=== PATIENT | male | born 2000 | race Caucasian/White ===

== ENCOUNTER → 2020-11-24 14:16 | Outpatient (CLI) | payer BC, SELFPAY ==
--- NOTE | ~2020-11-24 | XR_ITS ---
XR abdomen/kub 1V DATE: 11/24/2020 14:40 INDICATION: Hematuria TECHNIQUE: AP projection, 2 views COMPARISON: 11/24/2015 KUB FINDINGS: There is a prominent amount of fecal material in the colon but no evidence of bowel obstruc tion. The psoas shadows are intact. No visceromegaly is evident. No significant abnormal calcification. IMPRESSION: No significant abnormality. No evidence of urinary tract calcified calculus Reviewed, dictated and finalized at [facility]. Reviewed, dictated and finalized at location A.
== END ==
PROVIDERS: PCP Nurse Practitioner Family; Visit Provider Nurse Practitioner Family
DX: R31.9 Hematuria, unspecified (principal)
CPT/HCPCS: 74018

== ENCOUNTER 2020-12-03 14:03 | Emergency (ER) | payer BC, SELFPAY ==
[2020-12-03] VITALS (7 sets, daily range): BP systolic 128–166; BP diastolic 77–101; PULSE 75–102; RESP 15–23; TEMP 36.8; O2SAT 100
--- NOTE | ~2020-12-03 | XR_ITS ---
EXAMINATION: XR chest 1V DATE: 12/03/2020 14:44 INDICATION: Dizziness TECHNIQUE: frontal view of the chest was obtained. COMPARISON: Chest radiograph dated 06/25/2011 FINDINGS: Small calcified nodule at the lateral left lower lung zone consistent with old granulomatous disease. No other airspace opacities, pulmonary edema, pleural effusion or pneumothorax. The cardiomediastina l silhouette is normal. Mild upper thoracic levocurvature. IMPRESSION: 1. No acute cardiopulmonary disease. Reviewed, dictated and finalized at location A.
--- NOTE | ~2020-12-03 | CT_ITS ---
EXAMINATION: CT brain wo con DATE: 12/03/2020 14:41 INDICATION: Dizziness. TECHNIQUE: Computed tomography (CT) of the head was performed without intravenous contrast. The mA wa s adjusted according to patient size. Iterative reconstruction technique was employed. The dose-lengt h product was 605.33 mGy-cm. COMPARISON: Head CT 12/11/2005 FINDINGS: There is no intracranial hemorrhage, acute infarction, or abnormal intracranial mass lesion . The ventricles are normal in size. The paranasal sinuses are clear. The orbits are normal. There is a small left mastoid effusion. IMPRESSION: 1. Normal brain. Reviewed, dictated and finalized at location B. IMPRESSION: 1. Normal brain.
--- NOTE | 2020-12-03 14:25 | ED.GENADULT ---
HPI - General Adult General Chief complaint: Dizziness Stated complaint: dizziness x24 hrs, htn Time Seen by Provider: 12/03/20 14:06 Source: RN notes reviewed History of Present Illness HPI narrative: Patient presents to emergency department from home for dizziness. Patient states symptoms began approximately 24 hours ago. He states the dizziness is improved with laying down and worse with getting up and moving around. States that the dizziness is a feeling of being off he denies any fevers or chills vision changes chest pain shortness of breath abdominal pain nausea vomiting numbness or tingling in extremities or any other symptoms Related Data Home Medications Medication Instructions Recorded Confirmed lisdexamfetamine 50 mg capsule 50 mg PO DAILY 04/14/20 04/14/20 Allergies Allergy/AdvReac Type Severity Reaction Status Date / Time No Known Allergies Allergy Verified 11/20/20 14:24 Review of Systems Review of Systems: Narrative: Gen.: Denies fevers or chills Eyes: Denies eye pain or visual change ENT: Denies congestion Respiratory: Denies shortness of breath or cough CV: Denies chest pain or palpitations GI: Denies abdominal pain nausea, emesis or diarrhea Musculoskeletal: Denies back pain or muscle pain Neuro: See HPI Skin: Denies rash Except as documented, all other systems reviewed and negative [facility] Past Medical History Medical History (Updated 12/03/20 @ 16:04 by Delmar Vázquez DO) ADHD BMI 27.0-27.9,adult Family History Family History Father No problems noted. Mother Pancreatitis Sibling No problems noted. Social History Social History Smoking status: Never smoker Tobacco type: cigars Second hand tobacco smoke exposure: No Alcohol intake: current Substance use: never Substance use type: does not use Gender identity (if verbalized by the patient): Male Exam Narrative: Exam Narrative: APPEARANCE: No acute distress, nontoxic, resting in bed HEENT: Normocephalic, atraumatic, OMM, TMs clear bilaterally EYES: PERRL, EOMI NECK: Supple, nontender, full range of motion without pain, no meningismus RESPIRATORY: No respiratory distress, clear to auscultation bilaterally with no rhonchi wheezing or rales CARDIOVASCULAR: RRR s murmur ABDOMINAL: Soft, nontender, nondistended MUSCULOSKELETAL: Moves all extremities. No clubbing, cyanosis or edema. NEURO: A and O ?3, following commands, speech normal, cranial nerves II through XII grossly intact,muscle strength 5 out of 5 bilateral upper and lower extremities SKIN:: Warm, dry. Normal Color PSYCHIATRIC: Normal affect/mood Course Course Emergency Course: Patient states dizziness is resolved at this time Discussed with patient results of workup and diagnosis. Discussed need for follow-up with primary care, proper use of medication, and reasons to return to the emergency department. Patient understands and agrees to current treatment plan Vital Signs Vital signs: Vital Signs Pulse Rate 102 H 12/03/20 14:09 Respiratory Rate 21 H 12/03/20 14:09 Blood Pressure 166/101 H 12/03/20 14:09 Pulse Oximetry 100 12/03/20 14:09 Temperature 98.2 F 12/03/20 14:16 Pulse Rate 90 12/03/20 15:31 Respiratory Rate 21 H 12/03/20 15:31 Blood Pressure 128/77 12/03/20 15:31 Pulse Oximetry 100 12/03/20 15:31 Medical Decision Making MDM Narrative Medical decision making narrative: Patient's vertigo is felt to be likely peripheral in origin. There is no diplopia, dysarthria or dysphagia. Patient's gait is stable and there are no cerebral deficits to exam. Risk factor for central causes of vertigo reviewed. Patient felt likely reasonable for continued outpatient management and risks are felt to outweigh benefits for further imaging studies at this time Vital Signs Vital Signs: Vital Signs Pulse Rate 102 H 0
[2020-12-03 14:45] LABS: Add Urine Microscopic? YES; Appearance Urine Clear (Clear); Bilirubin Urine Negative (Negative); Blood Urine Negative (Negative); Color Urine Yellow (Yellow); Glucose Urine UA Negative (Negative); Ketones Urine Negative (Negative); Leukocyte Esterase Ur Negative LEU/UL (Negative); Mucus Urine Rare /lpf; Nitrate Urine Negative (Negative); Protein Urine 1+ mg/dL (Negative); RBC Urine 0-2 /hpf (0-2); Specific Grav Ur 1.017 (1.001-1.035); Squamous Epithelial Cell Urine Rare /hpf (Few); Urobilinogen Urine Negative mg/dL (<2.0); WBC Urine 0-3 /hpf
[2020-12-03] MEDS: SODIUM CHLORIDE 0.9% IV 1,000 ML 999 ML IV CONT (14:59)
[2020-12-03] MEDS: MECLIZINE HCL 25 MG TABLET PO (14:59)
[2020-12-03 15:04] LABS: Basophils Absolute Auto 0.1 K/mm3 (0.0-0.1); Basophils Percent Auto 1.3 % (0.2-1.2); Eosinophils Absolute Auto 0.1 K/mm3 (0-0.3); Eosinophils Percent Auto 1.8 % (0-4.4); Hemoglobin 17.2 g/dL (14.0-18.0); Immature Granulocyte Absolute 0.02 K/mm3 (0.00-0.031); Immature Granulocyte Percent A 0.3 % (0-0.5); Lymphocytes Percent Auto 26.4 % (18.3-44.2); Mean Corpuscular HGB Conc 33.1 g/dl (32-36); Mean Corpuscular Hemoglobin 29.3 pg (26-34); Mean Corpuscular Volume 88.4 fl (80-100); Mean Platelet Volume 9.5 fl (7.4-10.4); Monocytes Absolute Auto 0.8 K/mm3 (0.1-0.6); Monocytes Percent Auto 10.3 % (2.6-8.5); Neutrophils Absolute Auto 4.8 K/mm3 (1.3-6.7); Neutrophils Percent Auto 59.9 % (45.5-73.1); Platelet Count Result 300 k/mm3 (150-375); Red Blood Count 5.88 M/mm3 (4.6-6.20); Red Cell Distribution Width 11.7 % (11.5-14.5)
[2020-12-03 15:07] LABS: Alanine Aminotransferase 27 U/L (4-50); Alkaline Phosphatase 81 U/L (38-126); Anion Gap 3 mmol/L (8-16); Aspartate Amino Transferase 35 U/L (17-59); Bilirubin,Total 0.2 mg/dL (0.2-1.3); Blood Urea Nitrogen 11 mg/dL (9-20); Calcium 9.2 mg/dL (8.4-10.2); Carbon Dioxide 35 mmol/L (22-30); Chloride 102 mmol/L (98-107); Estimated CRCL calculation 117 ml/min; Estimated Glomerular Filt Rate > 60; Glucose 94 mg/dL (75-110); Potassium 3.9 mmol/L (3.4-5.0); Sodium 140 mmol/L (137-145)
--- NOTE | 2020-12-03 17:12 | ECG_ITS ---
Measurements Intervals [place] Rate: 92 P: 51 [place]: 176 QRS: 60 QRSD: 92 T: 38 QT: 348 QTc: 431 Interpretive Statements SINUS RHYTHM INCOMPLETE RIGHT BUNDLE BRANCH BLOCK DELAYED PRECORDIAL R/S TRANSITION BORDERLINE ECG Electronically Signed On 12-04-2020 7:06:15 CDT by Michele Anaya D.O.
== END 2020-12-03 16:15 | disposition home or self-care (01) ==
PROVIDERS: Emergency Provider Emergency Medicine; PCP Nurse Practitioner Family
DX: R42 Dizziness and giddiness (principal); F90.9 Attention-deficit hyperactivity disorder, unspecified type; I45.10 Unspecified right bundle-branch block
CPT/HCPCS: 36415; 70450; 71045; 80053; 81001; 85025; 93005; 96360; 99284; A9270; J7030

== ENCOUNTER 2020-12-15 23:03 | Emergency (ER) | payer BC, SELFPAY ==
--- NOTE | ~2020-12-15 | XR_ITS ---
EXAMINATION: XR chest 1V portable INDICATION: Dizziness TECHNIQUE: Portable AP chest at 0105 hours COMPARISON: 12/03/2020 FINDINGS: The lungs are free of acute opacities. There is no pleural effusion or pneumothorax. A calc ified nodule in the left lower lung zone is consistent with old granulomatous disease. The cardiomedi astinal silhouette is normal. The visualized osseous structures are unremarkable. IMPRESSION: 1. No acute cardiopulmonary abnormality. Reviewed, dictated and finalized at location A.
[2020-12-15 23:04] VITALS: BP 131/88; PULSE 76; RESP 16; TEMP 36.3; O2SAT 96
[2020-12-15 23:57] VITALS: BP 146/98; PULSE 68; RESP 20; O2SAT 99
[2020-12-15 23:59] VITALS: BP 140/98; PULSE 77; RESP 15; O2SAT 99
[2020-12-16] VITALS (16 sets, daily range): BP systolic 129–147; BP diastolic 86–99; PULSE 66–81; RESP 14–23; O2SAT 97–98
--- NOTE | 2020-12-16 00:50 | ED.DIZZY ---
HPI - Dizziness General Chief Complaint: Dizziness Stated Complaint: dizzy/high blood pressure Time Seen by Provider: 12/16/20 00:02 Source: patient and family Mode of arrival: ambulatory Limitations: no limitations History of Present Illness HPI Narrative: Patient is 20 years old white female presented to the ED with his mom because of sudden onset of dizziness while laying down watching TV. Patient denies any aggravating or relieving factors, patient denies any nausea, vomiting, fever, chills, headache, chest pain or shortness of breath. Patient reported to having similar symptoms 1 to 2 weeks ago and came to our emergency room, was diagnosed of vertigo, got better and meclizine. Which he ran out of it. Currently patient is asymptomatic. History of stress. Patient blood pressure was elevated at the time of dizziness, 181/91, improved on arrival to the emergency room down to 131/88. Currently patient is asymptomatic Related Data Allergies Allergy/AdvReac Type Severity Reaction Status Date / Time No Known Allergies Allergy Verified 12/11/20 13:46 Review of Systems Review of Systems: Narrative: CONSTITUTIONAL: Denies fever, chills, or sweats. EYES: Denies visual changes, redness, or discharge. ENT: Denies rhinorrhea, congestion, sore throat, or otalgia. CARDIOVASCULAR: Denies chest pain, palpitations, or edema. RESPIRATORY: Denies cough or dyspnea. GASTROINTESTINAL: Denies abdominal pain, nausea, vomiting, or diarrhea. GENITOURINARY: Denies dysuria or hematuria. SKIN: Denies rash or itching. MUSCULOSKELETAL: Denies back pain, joint pain, or myalgia. NEUROLOGIC: Denies headache, numbness, or weakness. PSYCHIATRIC: Denies anxiety or depression. [facility] Past Medical History Medical History ADHD BMI 27.0-27.9,adult Family History Family History Father No problems noted. Mother Pancreatitis Sibling No problems noted. Social History Social History Tobacco type: cigars Second hand tobacco smoke exposure: No Alcohol intake: current Substance use: never Substance use type: does not use Gender identity (if verbalized by the patient): Male Exam Narrative: Exam Narrative: General appearance: Well-developed, well-nourished Skin: Normal color Head: Normocephalic, nontraumatic Eyes: Clear conjunctiva ENT: Oropharynx normal, ears normal, nose normal Neck: Supple, nontender Chest and respiratory: Airway patent, no respiratory distress, no accessory muscle use Heart: Regular rate/rhythm Abdomen: Soft, nontender, no organomegaly, quiet bowel sounds Vascular: Normal peripheral pulses, normal capillary refill. Musculoskeletal: Normal range of motion, nontender back Neurologic: Alert and oriented ?3, [employer] is normal as tested, no gross motor deficit Course Course Emergency Course: Resolved Vital Signs Vital signs: Vital Signs Temperature 36.3 C L 12/15/20 23:04 Pulse Rate 76 12/15/20 23:04 Respiratory Rate 16 12/15/20 23:04 Blood Pressure 131/88 12/15/20 23:04 Pulse Oximetry 96 12/15/20 23:04 Temperature 36.3 C L 12/15/20 23:04 Pulse Rate 75 12/16/20 02:56 Respiratory Rate 16 12/16/20 02:56 Blood Pressure 132/92 H 12/16/20 02:56 Pulse Oximetry 98 12/16/20 02:56 MDM - Dizziness MDM Narrative Medical decision making narrative: Patient presents with dizziness. History of anxiety and depression. Labs, UA, urine drug screen and chest x-ray ordered. Patient had negative CT scan of the head last visit, declined to repeated today. Jose Luis
--- NOTE | 2020-12-16 00:56 | ECG_ITS ---
Measurements Intervals [place] Rate: 76 P: 50 [place]: 184 QRS: 64 QRSD: 87 T: 47 QT: 378 QTc: 427 Interpretive Statements SINUS RHYTHM NORMAL ECG Electronically Signed On 12-16-2020 7:06:26 CDT by Michele Anaya D.O.
[2020-12-16 01:31] LABS: Alanine Aminotransferase 28 U/L (4-50); Albumin Level 4.4 g/dL (3.5-5.1); Alkaline Phosphatase 68 U/L (38-126); Anion Gap 4 mmol/L (8-16); Aspartate Amino Transferase 35 U/L (17-59); Bilirubin,Total 0.4 mg/dL (0.2-1.3); Blood Urea Nitrogen 12 mg/dL (9-20); Calcium 9.6 mg/dL (8.4-10.2); Carbon Dioxide 34 mmol/L (22-30); Chloride 100 mmol/L (98-107); Estimated CRCL calculation 129 ml/min; Estimated Glomerular Filt Rate > 60; Glucose 99 mg/dL (75-110); Potassium 3.8 mmol/L (3.4-5.0); Sodium 138 mmol/L (137-145)
[2020-12-16 01:38] LABS: Basophils Absolute Auto 0.1 K/mm3 (0.0-0.1); Basophils Percent Auto 1.2 % (0.2-1.2); Eosinophils Absolute Auto 0.2 K/mm3 (0-0.3); Eosinophils Percent Auto 1.9 % (0-4.4); Hematocrit 48.3 % (42.0-52.0); Immature Granulocyte Absolute 0.03 K/mm3 (0.00-0.031); Immature Granulocyte Percent A 0.3 % (0-0.5); Lymphocytes Absolute Auto 2.37 K/mm3 (0.9-3.2); Lymphocytes Percent Auto 27.5 % (18.3-44.2); Mean Corpuscular HGB Conc 33.1 g/dl (32-36); Mean Corpuscular Hemoglobin 29.2 pg (26-34); Mean Corpuscular Volume 88.1 fl (80-100); Mean Platelet Volume 9.9 fl (7.4-10.4); Monocytes Absolute Auto 0.8 K/mm3 (0.1-0.6); Monocytes Percent Auto 9.3 % (2.6-8.5); Neutrophils Absolute Auto 5.2 K/mm3 (1.3-6.7); Neutrophils Percent Auto 59.8 % (45.5-73.1); Platelet Count Result 301 k/mm3 (150-375); Red Blood Count 5.48 M/mm3 (4.6-6.20); Red Cell Distribution Width 11.6 % (11.5-14.5); White Blood Count 8.6 K/mm3 (4.5-10.0)
[2020-12-16 02:15] LABS: Add Urine Microscopic? NO; Appearance Urine Clear (Clear); Bilirubin Urine Negative (Negative); Blood Urine Negative (Negative); Color Urine Straw (Yellow); Glucose Urine UA Negative (Negative); Ketones Urine Negative (Negative); Leukocyte Esterase Ur Negative LEU/UL (Negative); Nitrate Urine Negative (Negative); Protein Urine Negative (Negative); RBC Urine 0-2 /hpf (0-2); Squamous Epithelial Cell Urine Rare /hpf (Few); Urobilinogen Urine Negative mg/dL (<2.0); WBC Urine 0-3 /hpf
[2020-12-16 02:28] LABS: Amphetamine Screen Urine Positive (Negative); Barbiturate Screen Urine Negative (Negative); Benzodiazepines Screen Urine Negative (Negative); Cannabinoid Screen Urine Negative (Negative); Cocaine Screen Urine Negative (Negative); Methadone Screen Urine Negative (Negative); Opiate Screen Urine Negative (Negative); Phencyclidine Screen Urine Negative (Negative)
== END 2020-12-16 02:56 | disposition home or self-care (01) ==
PROVIDERS: Emergency Provider Emergency Medicine; PCP Family Medicine
DX: R42 Dizziness and giddiness (principal); F90.9 Attention-deficit hyperactivity disorder, unspecified type; F17.290 Nicotine dependence, other tobacco product, uncomplicated
CPT/HCPCS: 36415; 71045; 80053; 80307; 81003; 85025; 93005; 99283

== ENCOUNTER → 2022-05-11 16:03 | Outpatient (CLI) | payer BC, SELFPAY ==
--- NOTE | ~2022-05-11 | XR_ITS ---
XR ankle LT min 3V 05/11/2022 16:15 INDICATION: Left ankle pain PROCEDURE: 4 views left ankle COMPARISON: 02/28/2015 FINDINGS: Fracture, dislocation or subluxation is not identified. Ankle mortise intact. The soft tiss ues appear within normal limits. No foreign bodies are identified. IMPRESSION: 1: NO ACUTE BONE OR JOINT ABNORMALITY IDENTIFIED. Reviewed, dictated and finalized at location B.
== END ==
PROVIDERS: PCP Family Medicine; Visit Provider Nurse Practitioner Family
DX: S99.912A Unspecified injury of left ankle, initial encounter (principal); X58.XXXA Exposure to other specified factors, initial encounter
CPT/HCPCS: 73610

== ENCOUNTER 2022-08-11 09:33 | Emergency (ER) | payer BC, SELFPAY ==
[2022-08-11 09:47] VITALS: BP 128/87; PULSE 88; RESP 20; TEMP 36.1; O2SAT 99
--- NOTE | 2022-08-11 09:47 | ED.URI ---
HPI - URI/Sore Throat General Chief Complaint: Upper Respiratory Infection Stated Complaint: cold/flu Time Seen by Provider: 08/11/22 09:51 Source: patient and RN notes reviewed Mode of arrival: ambulatory Limitations: no limitations History of Present Illness HPI Narrative: 22 y/o male presented for c/o cough for over one week. Endorses at the onset he had 'flu like symptoms' which have improved. The cough has persisted, affecting his ability to do work. Endorses sob with exertion. He has been using a rescue inhaler as needed. Denies cp, palpitations, wheezing, n/v/d/f/c. Taking mucinex for symptoms. MD elicited complaint: cough Related Data Home Medications Medication Instructions Recorded Confirmed lamotrigine 25 mg tablet 25 mg PO DAILY 05/06/22 05/18/22 lisdexamfetamine 50 mg capsule 50 mg PO DAILY 05/06/22 05/18/22 (Vyvanse) Allergies Allergy/AdvReac Type Severity Reaction Status Date / Time No Known Allergies Allergy Verified 08/11/22 10:08 Review of Systems Review of Systems: per [facility] Past Medical History Medical History ADHD BMI 26.0-26.9,adult BMI 27.0-27.9,adult BMI 30.0-30.9,adult Family History Family History Father No problems noted. Mother Pancreatitis Sibling No problems noted. Social History Social History Smoking status: Never smoker Tobacco type: cigars Second hand tobacco smoke exposure: No Alcohol intake: current Substance use: never Substance use type: does not use Additional occupation/education comments: bo Gender identity (if verbalized by the patient): Male Spiritual care concerns: No Agree to blood products: Yes Exam Narrative: GENERAL: well-appearing, nontoxic EYES: PERRLA, conjunctivae clear ENT: Mucous membranes moist. TMs pearly [place] with dull light reflex bilaterally; no tragal tenderness. CHEST: Clear to auscultation, breath sounds equal. No wheezing, rhonchi, rales, or stridor. No respiratory distress, speaks in full sentences. HEART: Regular rate and rhythm. No murmur heard. SKIN: Warm, dry, no rash. NEURO: Alert and oriented x3. PSYCH: Normal mood and affect Course Course Emergency Course: Patient is aware of diagnosis, understands and agrees to treatment plan. Anticipatory guidance given. Patient agrees to follow-up as directed and is aware of reasons to seek care at the emergency department. Portions of this record may have been created with voice recognition software Level of Care: Express Care Visit Vital Signs Vital signs: reviewed MDM - URI/Sore Throat MDM Narrative Medical decision making narrative: Advised supportive measures and signs/symptoms to go to the ER. Pt is appropriate for outpt treatment and f/u. Differential Diagnosis Differential diagnosis: Likely upper respiratory infection, sinusitis, viral infection and bronchitis Discharge Plan Discharge Clinical Impression: Viral infection Patient Disposition: Home, Self-Care Condition: Stable Instructions: Acute Bronchitis (ED) Additional Instructions: Take medication as directed Recommend Flonase spray and Zyrtec (or Claritin/Magalis) over the counter Cough syrup may cause drowsiness; avoid driving or take it at night time. Tylenol 1000mg every 8 hours as needed for pain Symptomatic treatment includes: rest, fluids, and increase humidity of the air at home. Follow up with your primary care provider as needed in 1 week Go to the ER for worsening symptoms or concerns Prescriptions: New benzonatate 200 mg capsule 200 mg PO TID PRN (Reason: cough) Qty: 20 0RF prednisone 20 mg tablet 40 mg PO DAILY 5 Days Qty: 10 0RF No Action Vyvanse 50 mg capsule 50 mg PO DAILY lamotrigine 25 mg tablet 25 mg PO DAILY albuterol
== END 2022-08-11 10:10 | disposition home or self-care (01) ==
PROVIDERS: Emergency Provider Nurse Practitioner Family; PCP Nurse Practitioner Family
DX: B34.9 Viral infection, unspecified (principal)
CPT/HCPCS: 99213; G0463

== ENCOUNTER 2022-10-11 10:53 | Emergency (ER) | payer BC, SELFPAY ==
--- NOTE | ~2022-10-11 | XR_ITS ---
EXAMINATION: XR thoracic spine 3V DATE: 10/11/2022 12:03 INDICATION: Back pain. TECHNIQUE: 3 views of thoracic spine were obtained. COMPARISON: None. FINDINGS: There is 13 degrees levoscoliosis of upper thoracic spine. There is 12 degrees dextroscolio sis of lower thoracic spine. Vertebral body heights and intervertebral disc heights are normal. IMPRESSION: 1. Scoliosis. Reviewed, dictated and finalized at location A. [facility] [employer] [employer] IMPRESSION: 1. Scoliosis.
--- NOTE | 2022-10-11 10:58 | ED.BACK ---
HPI - Back Pain/Injury General Chief Complaint: Back Pain/Injury Stated Complaint: lower back pain/ lt leg pain Time Seen by Provider: 10/11/22 11:15 Source: patient and RN notes reviewed Mode of arrival: ambulatory Limitations: no limitations History of Present Illness HPI Narrative: 22-year-old male presents with concern for mid back pain. Reports today at work he was on a ladder, fell 5 ft and landed on his back. He reports pain to the left of the spine that radiates down the leg. He reports he feels like his left leg is slightly weaker than the right. He denies perianal anesthesia. He denies any bruising, open skin. MD elicited complaint: back pain Related Data Home Medications Medication Instructions Recorded Confirmed lamotrigine 25 mg tablet 50 mg PO DAILY 05/06/22 10/11/22 lisdexamfetamine 50 mg capsule 50 mg PO DAILY 10/11/22 10/11/22 (Vyvanse) Allergies Allergy/AdvReac Type Severity Reaction Status Date / Time No Known Allergies Allergy Verified 10/11/22 11:05 Review of Systems Review of Systems: CONSTITUTIONAL: Denies malaise, chills, sweats, or fever. CARDIOVASCULAR: Denies chest pain, palpitations, or edema. RESPIRATORY: Denies cough or dyspnea. GASTROINTESTINAL: Denies abdominal pain, nausea, vomiting, diarrhea, loss of bowel function GENITOURINARY: Denies dysuria, hematuria, frequency, loss of bladder function. SKIN: Denies rash or itching. MUSCULOSKELETAL: Reports midback pain, slight weakness in the left lower extremity with pain radiating down left leg NEUROLOGIC: Denies numbness or headache. All systems reviewed & are unremarkable except as noted in HPI and below PMFSH Past Medical History Medical History ADHD BMI 26.0-26.9,adult BMI 27.0-27.9,adult BMI 30.0-30.9,adult Family History Family History Father No problems noted. Mother Pancreatitis Sibling No problems noted. Social History Social History Smoking status: Never smoker Tobacco type: cigars Second hand tobacco smoke exposure: No Alcohol intake: current Substance use: never Substance use type: does not use Living arrangements: alone Occupation/Education: occupation Additional occupation/education comments: bo Gender identity (if verbalized by the patient): Male Spiritual care concerns: No Agree to blood products: Yes Comments At time of signature, agree with nursing past medical, surgical, social and family history. There is no relevant family history pertinent to the presenting complaint Exam Narrative: GENERAL: Well-appearing, well-nourished, and in no acute distress. HEAD: Normocephalic, atraumatic. EYES: PERRLA and EOMI. NECK: Supple. No lymphadenopathy. CHEST: Clear to auscultation. No respiratory distress. HEART: Regular rate and rhythm. Distal pulses palpable and equal, cap refill <3 seconds ABDOMEN: Soft, nontender, nondistended, normal active bowel sounds, no palpable or pulsatile masses. No CVA tenderness MUSCULOSKELETAL: Normal range of motion and strength in all extremities; 5/5 strength with hip flexion and extension, dorsiflexion and extension, knee flexion and extension, plantar flexion and extension of the right lower extremity, 4/5 of the left lower extremity.. Normal sensation in dermatomal distributions with sensitivity to light touch and pain. No midline back tenderness to palpation. Mild left thoracic paraspinal tenderness. Transfers from lying to sitting to standing. SKIN: Warm, dry, no rash. No ecchymosis, erythema, open wounds to back. NEURO: No focal deficits. Alert and oriented x3. Reflexes intact. Normal gait. PSYCH: Normal mood and affect Course Course Emergency Course: Discussed exam findings, imaging results with the patient. Advised that the x-ray might not be definitive di
[2022-10-11 11:00] VITALS: BP 144/88; PULSE 74; RESP 16; TEMP 36.4; O2SAT 100
== END 2022-10-11 12:43 | disposition home or self-care (01) ==
PROVIDERS: Emergency Provider Nurse Practitioner; PCP Nurse Practitioner Family
DX: S39.92XA Unspecified injury of lower back, initial encounter (principal); W11.XXXA Fall on and from ladder, initial encounter
CPT/HCPCS: 72072; 99213; G0463

== ENCOUNTER 2023-05-05 19:16 | Emergency (ER) | payer BC, SELFPAY ==
[2023-05-05 19:30] VITALS: BP 121/74; PULSE 84; RESP 16; TEMP 37.2; O2SAT 98
--- NOTE | 2023-05-05 19:51 | ED.DIZZY ---
HPI - Dizziness General Chief Complaint: Dizziness Stated Complaint: Dizzy spells;Nausea;Headache Time Seen by Provider: 05/05/23 19:51 Source: patient, RN notes reviewed and old records reviewed Mode of arrival: ambulatory Limitations: no limitations History of Present Illness HPI Narrative: 23-year-old male presents to the [facility] with concerns of dizzy spells since Tuesday. Patient reports change in vision and seeing black spots at times. 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 Did not change it, has been gradually getting worse over the last 3 days. Patient also reports that dull frontal headache. Patient had a similar episode several years ago and states they changed his medications and did fine. Onset (ago): day(s) (3) Related Data Allergies Allergy/AdvReac Type Severity Reaction Status Date / Time No Known Allergies Allergy Verified 02/01/23 15:09 Review of Systems Review of Systems: All systems reviewed & are unremarkable except as noted in HPI and below Constitutional: Constitutional: Reports no additional constitutional complaints Eyes: Eyes: Reports no additional eye complaints ENT: Reports system reviewed and no additional complaints, except as documented Cardiovascular: Cardiovascular: Reports no additional cardiovascular complaints, Denies chest pain and Denies dyspnea Respiratory: Respiratory: Reports no additional respiratory complaints, Denies chest congestion, Denies cough and Denies dyspnea Gastrointestinal: Gastrointestinal: Reports no additional gastrointestinal complaints, Denies abdominal pain, Denies nausea and Denies vomiting Musculoskeletal: Musculoskeletal: Reports no additional musculoskeletal complaints Integumentary/Breasts: Skin/Breast: Reports system reviewed and no additional complaints, except as docu Neurologic: Reports as per HPI, Reports dizziness, Reports headache(s), Denies focal weakness and Reports other (Change of vision and seeing black spots) Psychiatric: Psychiatric: Reports no additional psychiatric complaints Allergic/Immunologic: Allergic/Immunologic: Reports no additional allergic/immunologic complaints PMFSH Past Medical History Medical History ADHD BMI 26.0-26.9,adult BMI 27.0-27.9,adult BMI 30.0-30.9,adult Gastrointestinal disorder Overweight with body mass index (BMI) of 28 to 28.9 in adult Family History Family History Father Colon cancer Mother Pancreatitis Sibling No problems noted. 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 There is no relevant family history pertinent to the patient complaint. Exam Const: General: cooperative, healthy appearing, comfortable, no acute distress, well developed, alert and well nourished Nutritional Appearance: well nourished Orientation/consciousness: patient oriented x3 Limitations: no limitations HENMT: Head: normal to inspection Ears: hearing grossly normal bilaterally, external ears no
== END 2023-05-05 20:05 | disposition short-term general hospital (02) ==
PROVIDERS: Emergency Provider Nurse Practitioner; PCP Nurse Practitioner Family
DX: R42 Dizziness and giddiness (principal); R51.9 Headache, unspecified
CPT/HCPCS: 99213; G0463

== ENCOUNTER 2023-05-05 20:19 | Emergency (ER) | payer BC, SELFPAY ==
[2023-05-05] VITALS (8 sets, daily range): BP systolic 123–135; BP diastolic 78–87; PULSE 62–89; RESP 15–20; TEMP 36.7–36.8; O2SAT 97–100
--- NOTE | 2023-05-05 23:24 | ED.DIZZY ---
HPI - Dizziness General Chief Complaint: Dizziness Stated Complaint: dizziness, headache Time Seen by Provider: 05/05/23 21:58 Source: patient and family (mother) Limitations: no limitations History of Present Illness HPI Narrative: Patient is a 23-year-old male presents to the emergency department accompanied by his mother for dizziness. Patient notes he has history of vertigo a couple years ago in which he came here for evaluation and was unsure what the formal diagnosis was was told that he had vertigo and he was given a medication that seemed to slightly help and ultimately the vertigo went away with approximately 1-2 weeks and had not returned until recently. Patient states the CP and having vertigo starting around approximately Tuesday and notes that the vertigo only happens with rapid head movements addition to movement such as getting up in sitting down and the sensation will last for seconds to a couple of minutes in which everything is spinning and then ago way. Patient denies vertigo at rest. Patient denies vertigo persisting. Patient denies anything getting abruptly worse prompting evaluation today. Patient denies ear pain, headache, recent injuries, hearing changes, tinnitus, sore throat, nasal congestion, chest pain, shortness of breath, dysuria, numbness, weakness, vision changes, fever. Patient denies ever seeing your nose and throat doctor in the past. Patient notes that the vertigo only happens with rapid movements of his head. Patient denies having any vertigo in the ER today. Denies recent illness. Related Data Allergies Allergy/AdvReac Type Severity Reaction Status Date / Time No Known Allergies Allergy Verified 02/01/23 15:09 Review of Systems Review of Systems: A 10 system review of systems was completed on the patient and is negative except for what is stated in the HPI. Nursing and ancillary documentation was reviewed. [facility] Past Medical History Medical History ADHD BMI 26.0-26.9,adult BMI 27.0-27.9,adult BMI 30.0-30.9,adult Gastrointestinal disorder Overweight with body mass index (BMI) of 28 to 28.9 in adult Family History Family History Father Colon cancer Mother Pancreatitis Sibling No problems noted. Social History Social History Smoking status: Never smoker Tobacco type: cigars Second hand tobacco smoke exposure: No Alcohol intake: current Substance use: never Substance use type: does not use Lack of Transportation: No Lack of Food: Never True Current Housing: I Have Housing Concerned About Future Housing: No Difficulty Paying Gas/Electric Bills: No Difficulty Paying for Meds: No Currently Unemployed: No Education: Bachelor's Degree Difficulty w/ Childcare or Family Care: No Living arrangements: alone Occupation/Education: occupation Additional occupation/education comments: [employer] Gender identity (if verbalized by the patient): Male Spiritual care concerns: No Agree to blood products: Yes Comments At time of signature, I have reviewed and agree with nursing past medical, surgical, social and family history unless otherwise noted. Please see the nursing chart for further information. There is no relevant family history pertinent to the presenting complaint. Exam Narrative: CONST: No acute distress. Well nourished. HENMT: Head is normocephalic and atraumatic. Moist mucous membranes. No posterior oropharynx erythema. EYES: No conjunctival icterus, injection, or pallor. PERRL. No nystagmus. NECK: No meningeal signs. No JVD. No carotid bruits on auscultation bilaterally. No palpable cervical lymphadenopathy. RESP: Able to speak in full sentences. Normal respiratory effort. CTAB. CARDIO: Regular rate. Regular rhythm. 2+ DP and radial pulses bilaterally. GI: Nondisten
[2023-05-05] MEDS: MECLIZINE HCL 25 MG TABLET PO (23:44)
== END 2023-05-05 23:47 | disposition home or self-care (01) ==
PROVIDERS: Emergency Provider Student in an Organized Health Care Education/Training Program; PCP Nurse Practitioner Family
DX: H81.10 Benign paroxysmal vertigo, unspecified ear (principal); F90.9 Attention-deficit hyperactivity disorder, unspecified type; E66.3 Overweight; Z68.25 Body mass index [BMI] 25.0-25.9, adult; K92.9 Disease of digestive system, unspecified
CPT/HCPCS: 99283; A9270

== ENCOUNTER 2023-06-20 09:45 | Emergency (ER) | payer BC, SELFPAY ==
[2023-06-20 10:09] VITALS: BP 129/84; PULSE 89; RESP 16; TEMP 36.6; O2SAT 99
[2023-06-20 10:13] VITALS: BP 129/84; PULSE 89; RESP 16; TEMP 36.6; O2SAT 99
--- NOTE | 2023-06-20 11:33 | ED.URI ---
HPI - URI/Sore Throat General Chief Complaint: Upper Respiratory Infection Stated Complaint: Cough Time Seen by Provider: 06/20/23 11:34 Source: patient, RN notes reviewed and old records reviewed Mode of arrival: ambulatory Limitations: no limitations History of Present Illness HPI Narrative: 23-year-old male presents to the [facility] with complaints of a cough that started about 10 days ago. States that is he has had sinus congestion, chest congestion. States all of his symptoms are worse at night than during the day. Denies fevers, chest pain, abdominal pain. No sick contacts. Onset (ago): day(s) (10) Related Data Allergies Allergy/AdvReac Type Severity Reaction Status Date / Time No Known Allergies Allergy Verified 06/20/23 10:12 Review of Systems Review of Systems: All systems reviewed & are unremarkable except as noted in HPI and below Constitutional: Constitutional: Reports no additional constitutional complaints Eyes: Eyes: Reports no additional eye complaints ENT: Reports as per HPI Cardiovascular: Cardiovascular: Reports no additional cardiovascular complaints, Denies chest pain and Denies dyspnea Respiratory: Respiratory: Reports as per HPI, Reports chest congestion, Reports cough and Denies dyspnea Gastrointestinal: Gastrointestinal: Reports no additional gastrointestinal complaints, Denies abdominal pain, Denies nausea and Denies vomiting Musculoskeletal: Musculoskeletal: Reports no additional musculoskeletal complaints Integumentary/Breasts: Skin/Breast: Reports system reviewed and no additional complaints, except as docu Neurologic: Reports system reviewed and no additional complaints, except as documented Psychiatric: Psychiatric: Reports no additional psychiatric complaints Allergic/Immunologic: Allergic/Immunologic: Reports no additional allergic/immunologic complaints COUNT INCLUDES THE [facility] Past Medical History Medical History ADHD BMI 26.0-26.9,adult BMI 27.0-27.9,adult BMI 30.0-30.9,adult Gastrointestinal disorder Overweight with body mass index (BMI) of 28 to 28.9 in adult Family History Family History Father Colon cancer Mother Pancreatitis Sibling No problems noted. 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 There is no relevant family history pertinent to the patient complaint. Exam Const: General: cooperative, healthy appearing, comfortable, no acute distress, well developed, alert and well nourished Nutritional Appearance: well nourished Orientation/consciousness: patient oriented x3 Limitations: no limitations HENMT: Head: normal to inspection Ears: hearing grossly normal bilaterally, external ears normal, TM's normal bilaterally, EAC's normal, mastoids normal and no periauricular adenopathy Face/Nose/Sinus: Normal external nose present, Normal nares present, No nasal polyps present, Normal nasal mucous membranes and turbinates present, No nasal discharge present, normal facial exam, face symmet
== END 2023-06-20 11:46 | disposition home or self-care (01) ==
PROVIDERS: Emergency Provider Nurse Practitioner; PCP Nurse Practitioner Family
DX: J32.9 Chronic sinusitis, unspecified (principal); J40 Bronchitis, not specified as acute or chronic
CPT/HCPCS: 99213; G0463

== ENCOUNTER 2023-10-19 08:20 | Emergency (ER) | payer BC, SELFPAY ==
--- NOTE | 2023-10-19 08:30 | ED.URI ---
HPI - URI/Sore Throat General Chief Complaint: Upper Respiratory Infection Stated Complaint: COUGH Time Seen by Provider: 10/19/23 08:22 Source: patient Mode of arrival: ambulatory Limitations: no limitations History of Present Illness HPI Narrative: Bhupinder is a 23-year-old female patient presenting to the clinic today with complaints of cough, sore throat, and congestion. He reports his symptoms started on . Initially had sore throat however that has resolved but has been to the lot of coughing and having nasal drip. Denies any fever, chills, body aches. MD elicited complaint: cough, sore throat and nasal congestion Related Data Allergies Allergy/AdvReac Type Severity Reaction Status Date / Time No Known Allergies Allergy Verified 10/19/23 08:47 Review of Systems Review of Systems: Pertinent positives per HPI. Patient denies any fever, chills, rash, headache, visual changes, dizziness, shortness of breath, chest pain, palpitations, nausea, vomiting, diarrhea, constipation, abdominal pain, or any urinary issues. [facility] Past Medical History Medical History ADHD BMI 26.0-26.9,adult BMI 27.0-27.9,adult BMI 30.0-30.9,adult Gastrointestinal disorder Overweight with body mass index (BMI) of 28 to 28.9 in adult Family History Family History Father Colon cancer Mother Pancreatitis Sibling No problems noted. 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 There is no relevant family history pertinent to the patient complaint. Exam Narrative: General: Well-developed, well nourished, in no apparent distress Head: Normocephalic, atraumatic Eyes: Pupils equally round and reactive to light bilaterally, EOM intact, sclera and conjunctive clear, no discharge, lids normal Ears: TMs intact and clear, ear canals clear, no drainage, grossly hearing normal. Nose: Nares patent, clear discharge, no inflammation, no sinus tenderness. Mouth: Oral pharynx red without lesions or masses, good dentition, MMM. Neck: Supple, trachea midline, no enlargement of anterior or posterior cervical nodes, no thyroid masses or goiter palpable. Cardio: Regular rate and rhythm, s1 and s2 normal, no murmur appreciated. Resp: Clear to auscultation bilaterally, no rhonchi, rales, wheezing or rubs Course Course Emergency Course: Portions of this record may have been created with voice recognition software. Level of Care: Express Care Visit Vital Signs Vital signs: Vital signs reviewed MDM - URI/Sore Throat MDM Narrative Medical decision making narrative: At the time of visit patient is resting comfortably on the exam table. Patient appears to be nontoxic. Labs: Strep test was negative the clinic today. Plan: I suspect patient has allergic rhinitis with postnasal drip. Supportive measures were discussed with the patient and they voiced understanding discharge instructions and agrees to treatment plan. Return precautions
[2023-10-19 08:33] VITALS: BP 134/84; PULSE 70; RESP 16; TEMP 36.4; O2SAT 100
== END 2023-10-19 09:04 | disposition home or self-care (01) ==
PROVIDERS: Emergency Provider Nurse Practitioner Family; PCP Nurse Practitioner Family
DX: J30.9 Allergic rhinitis, unspecified (principal); R09.82 Postnasal drip
CPT/HCPCS: 87081; 87880; 99213; G0463

== ENCOUNTER 2023-12-29 14:31 | Emergency (ER) | payer BC, SELFPAY ==
--- NOTE | ~2023-12-29 | XR_ITS ---
EXAMINATION: XR wrist RT min 3V DATE: 12/29/2023 15:07 INDICATION: Right wrist injury. TECHNIQUE: 4 views of right wrist were obtained. COMPARISON: Right wrist radiographs 12/16/2014 FINDINGS: Bone alignment is normal. No fracture. Joint spaces are normal. IMPRESSION: 1. Normal right wrist. Reviewed, dictated and finalized at location E. IMPRESSION: 1. Normal right wrist.
[2023-12-29 14:48] VITALS: BP 126/82; PULSE 95; RESP 16; TEMP 36.1; O2SAT 100
--- NOTE | 2023-12-29 14:51 | ED.UPPEXIN ---
HPI - Extremity Injury (Upper) General Chief Complaint: Extremity Injury, Upper Stated Complaint: Right Wrist Pain Time Seen by Provider: 12/29/23 14:50 Source: patient, RN notes reviewed and old records reviewed Mode of arrival: ambulatory Limitations: no limitations History of Present Illness HPI narrative: 23 old male presents to the [facility] with complaints of right wrist pain after being ?taken out? and landing on his outstretched arm and hay wrist while playing [employer]. Related Data Allergies Allergy/AdvReac Type Severity Reaction Status Date / Time No Known Allergies Allergy Verified 12/29/23 14:47 Review of Systems Review of Systems: All systems reviewed & are unremarkable except as noted in HPI and below Constitutional: Constitutional: Reports no additional constitutional complaints Eyes: Eyes: Reports no additional eye complaints ENT: Reports system reviewed and no additional complaints, except as documented Cardiovascular: Cardiovascular: Reports no additional cardiovascular complaints, Denies chest pain and Denies dyspnea Respiratory: Respiratory: Reports no additional respiratory complaints, Denies chest congestion, Denies cough and Denies dyspnea Gastrointestinal: Gastrointestinal: Reports no additional gastrointestinal complaints, Denies abdominal pain, Denies nausea and Denies vomiting Musculoskeletal: Musculoskeletal: Reports as per HPI, Reports arthralgias and Reports joint swelling Integumentary/Breasts: Skin/Breast: Reports system reviewed and no additional complaints, except as docu Neurologic: Reports system reviewed and no additional complaints, except as documented Psychiatric: Psychiatric: Reports no additional psychiatric complaints Allergic/Immunologic: Allergic/Immunologic: Reports no additional allergic/immunologic complaints PMF[facility] Past Medical History Medical History ADHD BMI 26.0-26.9,adult BMI 27.0-27.9,adult BMI 30.0-30.9,adult Body mass index (BMI) 23 or greater Gastrointestinal disorder Overweight with body mass index (BMI) of 28 to 28.9 in adult Family History Family History Father Colon cancer Mother Pancreatitis Sibling No problems noted. 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 There is no relevant family history pertinent to the patient complaint. Exam Const: General: cooperative, healthy appearing, comfortable, no acute distress, well developed, alert and well nourished Nutritional Appearance: well nourished Orientation/consciousness: patient oriented x3 Limitations: no limitations HENMT: Head: normal to inspection Ears: hearing grossly normal bilaterally and external ears normal Face/Nose/Sinus: Normal external nose present, Normal nares present, Normal nasal mucous membranes and turbinates present, normal facial exam and face symmetric Face and sinus: normal facial exam and face symmetric Eyes: General: appearance normal, both eyes and all related st
== END 2023-12-29 15:25 | disposition home or self-care (01) ==
PROVIDERS: Emergency Provider Nurse Practitioner; PCP Nurse Practitioner Family
DX: S63.501A Unspecified sprain of right wrist, initial encounter (principal); W19.XXXA Unspecified fall, initial encounter; Y93.74 Activity, frisbee; F90.9 Attention-deficit hyperactivity disorder, unspecified type
CPT/HCPCS: 73110; 99213; G0463

== ENCOUNTER 2024-06-14 15:49 | Emergency (ER) | payer BC, OTHER, SELFPAY ==
[2024-06-14 16:02] VITALS: BP 132/86; PULSE 87; RESP 16; TEMP 36.1; O2SAT 99
--- NOTE | 2024-06-14 16:17 | ED_ITS ---
HPI - URI/Sore Throat General Chief Complaint: Upper Respiratory Infection Stated Complaint: Cough Time Seen by Provider: 06/14/24 16:17 Source: patient, RN notes reviewed and old records reviewed Mode of arrival: ambulatory Limitations: no limitations History of Present Illness HPI Narrative: 24-year-old male to Express Care with complaint of nonproductive cough for 10 days. Patient states cough has recently started interfering with his sleep. Patient has attempted to treat with cough drops, Tylenol fluids cold and Faby- [place] with little relief. Patient reports history of sinus infections. patient able to tolerate fluids by mouth. Patient denies difficulty swallowing, shortness of breath, allergies, pertinent medical history. Patient resting comfortably in exam room in no acute distress. Respirations even and nonlabored. Related Data Allergies Allergy/AdvReac Type Severity Reaction Status Date / Time No Known Allergies Allergy Verified 06/14/24 16:06 Review of Systems Review of Systems: All systems reviewed & are unremarkable except as noted in HPI and below Constitutional: Constitutional: Reports no additional constitutional complaints Eyes: Eyes: Reports no additional eye complaints ENT: Reports system reviewed and no additional complaints, except as documented Cardiovascular: Cardiovascular: Reports no additional cardiovascular complaints, Denies chest pain and Denies dyspnea Respiratory: Respiratory: Reports no additional respiratory complaints, Reports cough and Denies dyspnea Musculoskeletal: Musculoskeletal: Reports no additional musculoskeletal complaints Neurologic: Reports system reviewed and no additional complaints, except as documented Psychiatric: Psychiatric: Reports no additional psychiatric complaints [facility] Past Medical History Medical History ADHD Gastrointestinal disorder Family History Family History Father Colon cancer Mother Pancreatitis Sibling No problems noted. Social History Social History Smoking status: Never smoker Tobacco type: cigars Second hand tobacco smoke exposure: No Alcohol intake: current Substance use: never Substance use type: does not use Lack of Transportation: No Lack of Food: Never True Current Housing: I Have Housing Concerned About Future Housing: No Difficulty Paying Gas/Electric Bills: No Difficulty Paying for Meds: No Currently Unemployed: No Education: Bachelor's Degree Difficulty w/ Childcare or Family Care: No Living arrangements: alone Occupation/Education: occupation Additional occupation/education comments: bo Gender identity (if verbalized by the patient): Male Spiritual care concerns: No Agree to blood products: Yes Comments At the time of my signature, I reviewed and agree with the nursing past medical, surgical, social, and family history. There is no relevant family history pertinent to the patient complaint. Exam Const: General: cooperative, healthy appearing, comfortable, no acute distress, alert and well nourished Nutritional Appearance: well nourished Orientation/consciousness: patient oriented x3 Limitations: no limitations HENMT: Head: normal to inspection Ears: external ears normal Face/Nose/Sinus: Normal external nose present, Normal nares present, normal facial exam, No erythema and No edema Face and sinus: normal facial exam, no erythema and no edema Mouth: Yes Normal oral and palatal mucosa present Throat: posterior oropharynx abnormal erythema and postnasal drainage Eyes: General: appearance normal, both eyes and all related structures Neck: Neck: normal visual inspection, full ROM and no meningeal signs Lymphatic: no lymphadenopathy noted and no lymphedema noted Chest: Chest palpation & inspection: normal inspection of the chest Resp: Effort & Inspection: normal respiratory effort and able to speak in complete sentences Auscultation: clear to auscultation bilaterally Cardio: Jugular venous distension: no JVD Rate: regular rate Rhythm: regular rhythm Back/Spine/Pelvis: Cervical Spine: cervical ROM normal Skin: General skin exam: normal color, no rashes or lesions noted and turgor normal Neuro: General: patient oriented x3, gait normal, moves all extremities and no meningeal signs Speech: normal speech Gait exam (Neuro): Normal gait present Extrem: General: normal to inspection, full ROM and capillary refill normal Psych: Appearance: grossly normal and well kempt Course Course Emergency Course: Some parts of this dictation were generated by voice recognition software and may contain typographical and/or grammatical inaccuracies. Level of Care: Express Care Visit Vital Signs Vital signs: Vital Signs Temperature 36.1 C L 06/14/24 16:02 Pulse Rate 87 06/14/24 16:02 Respiratory Rate 16 06/14/24 16:02 Blood Pressure 132/86 06/14/24 16:02 Pulse Oximetry 99 06/14/24 16:02 Temperature 36.1 C L 06/14/24 16:02 Pulse Rate 87 06/14/24 16:02 Respiratory Rate 16 06/14/24 16:02 Blood Pressure 132/86 06/14/24 16:02 Pulse Oximetry 99 06/14/24 16:02 reviewed MDM - URI/Sore Throat MDM Narrative Medical decision making narrative: 24-year-old male to Express Care with complaint of nonproductive cough for 10 days. Patient states cough has recently started interfering with his sleep. Patient has attempted to treat with cough drops, Tylenol fluids cold and Faby- [place] with little relief. Patient reports history of sinus infections. patient able to tolerate fluids by mouth. Patient denies difficulty swallowing, shortness of breath, allergies, pertinent medical history. Patient resting comfortably in exam room in no acute distress. Respirations even and nonlabored. On exam, posterior oropharynx erythematous with postnasal drainage. Exam otherwise unremarkable. Patient is sitting comfortably in exam room nontoxic in appearance. Patient appropriate for outpatient treatment and follow-up. Discharge instructions reviewed with patient, as well as provided in writing per nursing staff. The instructions also include specific and strict return/GO TO THE ER as well as f/u information. All questions have been answered, and the patient deny any further questions with discharge and discharge plan. Some parts of this dictation were generated by voice recognition software and may contain typographical and/or grammatical inaccuracies. Differential Diagnosis Differential diagnosis: Likely upper respiratory infection, croup, otitis media, sinusitis, viral infection, bronchitis, influenza and pharyngitis Discharge Plan Discharge Clinical Impression: Cough in adult Patient Disposition: Home, Self-Care Condition: Stable Instructions: Acute Cough (ED) Additional Instructions: -Alternate Tylenol and Motrin per package directions for fever or pain. -Antihistamine medication such as Benadryl at night and Zyrtec/Claritin/Magalis during the day can help improve symptoms. -Use Flonase twice a day for 5 days then daily to help reduce the inflammation and dry up your sinuses. -You can also use Sudafed or Mucinex. Be sure to drink plenty of water with these medications at least 8 ounces with every dose and it is important to drink 8 to 10 glasses of water per day. Water is a natural decongestant -Eat and drink things that are easy to swallow, like tea or soup, or popsicles. -Oral rinses such as: Salt water gargles and/or may use topical anesthetic (eg. Chloraseptic spray) or lozenges to relieve dryness or throat pain). -Frequent hand washing or hand charge account identification clerk is one of the best ways to prevent spre ad of infection. -Using a vaporizer or humidifier at night will also help thin secretions and help with coughing up phlegm. -Follow up with primary care provider in 2-3 days if condition is not improving; or seek ER visit if you have trouble breathing, cannot drink enough fluids, have muffled voice, difficulty opening your mouth, or severe swelling. Prescriptions: New azithromycin 250 mg tablet 250 mg PO DAILY Qty: 6 0RF Rx Instructions: 250 mg orally. Take TWO tablets today, then one tablet daily for 4 days. No Action Vyvanse 50 mg capsule 50 mg PO DAILY Qty: 30 0RF Rx Instructions: name brand Follow-up/Referrals: Yuko Landaverde RNFA [Primary Care Provider] -
== END 2024-06-14 16:51 | disposition home or self-care (01) ==
PROVIDERS: Emergency Provider Nurse Practitioner Family
DX: R05.9 Cough, unspecified (principal); F90.9 Attention-deficit hyperactivity disorder, unspecified type
CPT/HCPCS: 99213; G0463

== ENCOUNTER 2024-07-14 14:43 | Emergency (ER) | payer BC, OTHER, SELFPAY ==
--- NOTE | ~2024-07-14 | XR_ITS ---
EXAM: XR hand RT min 3V DATE: 07/14/2024 14:57 HISTORY: right hand/thumb pain- hyperextend injury . COMPARISON: None available. FINDINGS: Normal mineralization. Ossific fragment projecting medial to the distal end of the first m etacarpal, seen only in one view. No definite fracture or dislocation or tarsi identified. No lytic o r blastic lesion. Joint spaces are maintained. No erosion or periosteal change. Soft tissues within n ormal limits. IMPRESSION: No definite fracture or donor site identified. Small ossific fragment projecting medial t o the distal end of the first metacarpal, may represent chronic ossification or old fracture fragment . Correlate for medial or thenar tenderness. Reviewed, dictated and finalized at location K. PPING MACHINE OPERATOR IMPRESSION: No definite fracture or donor site identified. Small ossific fragme nt projecting medial to the distal end of the first metacarpal, may represent c hronic ossification or old fracture fragment. Correlate for medial or thenar te nderness.
--- NOTE | 2024-07-14 14:44 | ED_ITS ---
HPI - Extremity Injury (Upper) General Chief Complaint: Extremity Injury, Upper Stated Complaint: Right Thumb Pain Time Seen by Provider: 07/14/24 14:44 Source: patient Mode of arrival: ambulatory Limitations: no limitations History of Present Illness HPI narrative: Bhupinder is a 24-year-old male patient presenting to the clinic today with complaints of right thumb reports that he fell 2 weeks ago and hyperextended his thumb. Is having pain with flexion and extension over the metacarpal joint/pip. Does have some mild swelling over this area as well. Related Data Allergies Allergy/AdvReac Type Severity Reaction Status Date / Time No Known Allergies Allergy Verified 06/14/24 16:06 Review of Systems 2 Review of Systems: Pertinent positives per HPI. Patient denies any fever, chills, rash, headache, visual changes, dizziness, cough, runny nose, sore throat, shortness of breath, chest pain, palpitations, nausea, vomiting, diarrhea, constipation, abdominal pain, or any urinary issues. PMFSH Past Medical History Medical History ADHD Gastrointestinal disorder Family History Family History Father Colon cancer Mother Pancreatitis Sibling No problems noted. 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 There is no relevant family history pertinent to the patient complaint. Exam Narrative: General: Well-developed, well nourished, in no apparent distress Head: Normocephalic, atraumatic. Cardio: Regular rate and rhythm, s1 and s2 normal, no murmur appreciated. Resp: Clear to auscultation bilaterally, no rhonchi, rales, wheezing or rubs. Musculoskeletal: No deformity, tender to palpation over the MCP and pip joint of the right thumb, limited range of motion due to pain and swelling, is able to t he flex and extend the thumb against resistance but is not able to fully flex the PIP joint, muscle strength strong and equal, peripheral pulse strong, no edema, no cyanosis, normal gait and station Course Course Emergency Course: Portions of this record may have been created with voice recognition software. Level of Care: Express Care Visit Vital Signs Vital signs: Vital Signs Temperature 36.7 C 07/14/24 14:49 Pulse Rate 78 07/14/24 14:49 Respiratory Rate 16 07/14/24 14:49 Blood Pressure 129/82 07/14/24 14:49 Pulse Oximetry 98 07/14/24 14:49 Temperature 36.7 C 07/14/24 14:49 Pulse Rate 78 07/14/24 14:49 Respiratory Rate 16 07/14/24 14:49 Blood Pressure 129/82 07/14/24 14:49 Pulse Oximetry 98 07/14/24 14:49 Vital signs reviewed MDM - Extremity Injury (Upper) MDM Narrative Medical decision making narrative: At the time of visit patient is resting comfortably on the exam table. Patient appears to be nontoxic. Diagnostics: X-ray of the right hand was performed and shows no sign of acute fracture. Plan: I suspect patient has a right thumb hyperextension injury. Patient reports he is unable to flex the PIP joint fully-recommend follow-up with Dr. Sparks. Supportive measures were discussed with the patient and they voiced understanding discharge instructions and agrees to treatment plan. Return precautions reviewed Differential Diagnosis Differential diagnosis: Likely finger sprain, dislocation of finger and other (thumb fracture, avulsion fracture, hyper extension injury, tendon injury) Imaging Data Radiologist's impression: ITS Impressions Hand X-Ray 07/14/24 15:14 IMPRESSION: No definite fracture or donor site identified. Small ossific fragment projecting medial to the distal end of the first metacarpal, may represent chronic ossification or old fracture fragment. Correlate for medial or thenar tenderness. Discharge Plan Discharge Clinical Impression: Hyperextension injury of thumb Patient Disposition: Home, Self-Care Condition: Stable Instructions: Antibiotic Form, Finger Sprain (ED) Additional Instructions: X-rays shows no sign of acute fracture. Does appear that you have a small ossific fragment projecting medial to the distal end of the 1st metacarpal Rest, ice, and elevate Tylenol/motrin for pain as discussed. Wear thumb spica splint x1 week Follow up with your PCP if symptoms persist more than 1 week. Follow-up with Dr. Sparks- hand specialist. Call office on Tuesday to schedule an appointment Prescriptions: No Action Vyvanse 50 mg capsule 50 mg PO DAILY Qty: 30 0RF Rx Instructions: name brand Follow-up/Referrals: Cruzito Sparks MD [Physician] - 1 Day (Right thumb hyperextension injury) Daja Landaverde, MACHINIST HELPER MARINE [Primary Care Provider] - Time of Disposition: 15:27 Quality NIHSS Nursing Documentation ED NIHSS nursing documentation: reviewed/agree
[2024-07-14 14:49] VITALS: BP 129/82; PULSE 78; RESP 16; TEMP 36.7; O2SAT 98
== END 2024-07-14 15:32 | disposition home or self-care (01) ==
PROVIDERS: Emergency Provider Nurse Practitioner Family; PCP Nurse Practitioner Family
DX: S69.81XA Other specified injuries of right wrist, hand and finger(s), initial encounter (principal); W19.XXXA Unspecified fall, initial encounter
CPT/HCPCS: 73130; 99213; G0463

== ENCOUNTER 2024-08-28 15:52 | Outpatient (CLI) | payer OTHER, SELFPAY ==
--- NOTE | ~2024-08-28 | MR_ITS ---
EXAMINATION: MR hand RT wo/w con DATE: 08/28/2024 16:57 INDICATION: Pain at the right first metacarpophalangeal joint after fall onto hand 2 months prior. TECHNIQUE: Magnetic resonance imaging (MRI) of the right hand was performed without and with 15 mL Mu ltihance intravenous contrast . Icdko-tm-xmuc centered on the film and excludes portions of the ulnar side of the hand and the proximal carpal row. Sequences included sagittal, coronal, and axial T1-ramona ghted FSE, axial and sagittal T2-weighted FS FSE, sagittal and coronal fluid sensitive FSE STIR, arnold nal PD-weighted FS FSE, axial T1-weighted FS FSE and postcontrast axial, sagittal and coronal T1-weig hted FS FSE. COMPARISON: None FINDINGS: There is a tear at the distal attachment of the proper ulnar collateral ligament at the first metacar pophalangeal joint the dorsal portion of which is reflected proximally extending over the proximal ma rgin of the adductor pollicis aponeurosis consistent with a Stener lesion. There is mild increased si gnal at the distal attachment of the more volar accessory ulnar collateral ligament consistent with a nondisplaced partial tear. The visualized portions of the flexor and extensor tendons are normal. Th ere is prominent increased signal along the distal aspect of the central and ulnar aspects of the vol ar plate at the first metacarpophalangeal joint consistent with partial tear. The radial side of the volar plate appears to remain intact. No evident tear of the annular pulleys of the thumb. There is m ild likely reactive marrow edema at the base of the first proximal phalanx and at the head of the fir st metacarpal without evident fracture. Marrow signal in the remainder of the visualized bones is unr emarkable. No joint effusions, tenosynovitis or other abnormal fluid collections. IMPRESSION: 1. Stener lesion with tear of the distal proper ulnar collateral ligament of the first metacarpophala ngeal joint which is reflected superficial to the proximal margin of the adductor pollicis aponeurosi s and partial tear of the distal accessory ulnar collateral ligament. 2. Partial tear of the central and ulnar sides of the volar plate at the base of the first proximal p halanx. Reviewed, dictated and finalized at location B. TER SUPERVISOR IMPRESSION: 1. Stener lesion with tear of the distal proper ulnar collateral ligament of th e first metacarpophalangeal joint which is reflected superficial to the proxima l margin of the adductor pollicis aponeurosis and partial tear of the distal ac cessory ulnar collateral ligament. 2. Partial tear of the central and ulnar sides of the volar plate at the base o f the first proximal phalanx.
== END 2024-08-28 15:53 | disposition home or self-care (01) ==
PROVIDERS: Visit Provider Physician Assistant Surgical
DX: S53.31XA Traumatic rupture of right ulnar collateral ligament, initial encounter (principal); X58.XXXA Exposure to other specified factors, initial encounter
CPT/HCPCS: 73220; A9577

== ENCOUNTER 2024-09-21 01:15 | Day surgery (SDC) | payer OTHER, SELFPAY ==
--- NOTE | 2024-09-17 15:12 | SUR.PREOP ---
Report to the Outpatient Waiting Room, entrance under the green pavilion located off [facility], at time 1045 on date 09/21/24. Planned Procedure Time: 1245.? Time changes happen often and if your time is changed the preop area will call you the afternoon before. - You and your visitor will be asked to self-screen and do not enter if you have any COVID symptoms. Please call surgeon if you need to reschedule. - A mask is optional within the hospital at this time. Patients may have clear liquids (water, carbonated beverages, clear teas, apple juice) until 3 hours prior to surgery with a maximum of 20 ounces. - NO CLEAR LIQUIDS AFTER 4:45AM - No food from midnight until time of surgery and no smoking. This includes no chewing gum, candy or mints. - Infants may have breast milk until 4 hours before surgery, formula 6 hours prior to surgery. - Children will be allowed to drink immediately following surgery.? If applicable, please bring a bottle or sippy cup to assist with drinking. Juice, water, soda, and popsicles are readily available.? For infants on formula, please bring formula the day of surgery.? Pacifiers are allowed. Take only the following medications with a SIP of water on the morning of surgery: VYVANSE DO NOT STOP ANY OF YOUR OTHER PRESCRIPTION MEDICATIONS PRIOR TO SURGERY EXCEPT THE FOLLOWING Medications to discontinue per physician N/A Date to take last dose Please no make-up, nail chadian, hairspray, perfume, deodorant, or body powder the day of surgery.? No jewelry (including any body piercings) or valuables the day of surgery, leave them at home.? Please take a shower or bath the night before, or the morning of, surgery with an antibacterial soap.? Wear comfortable, loose fitting clothing.? Children are encouraged to wear pajamas. - Jewelry must be removed prior to entering the operating room.? Rings and piercings that are not removed may be cut off. - The hospital will not accept responsibility for valuables.? - Please leave all valuables, including medications, at home the day of surgery. If you are going home after surgery, a licensed dump truck driver must drive you home.? - NO public transportation without another adult if you receive anesthesia. - We recommend that an adult stay with you for 24 hours following discharge. - We also recommend that you do not drive, make important decision, drink alcoholic beverages, or take any drugs that were not prescribed by your health care provider for at least 24 hours after your discharge time. For Pediatric surgeries, we recommend two adults accompany the child home. Hold all vitamins and supplements for 3 days per anesthesiologist. Follow any additional instructions given to you from your surgeon. Telephone instructions given to LAYLA PEREZ and asked if any additional questions and then verbalized understanding. Patient advised to call surgeon office or pre surgery nurse liaison [phone] if any additional questions.
[2024-09-17 15:21] VITALS: BMI 23.8
[2024-09-21] VITALS (9 sets, daily range): BP systolic 115–127; BP diastolic 76–91; PULSE 81–97; RESP 12–20; TEMP 36.4–36.8; O2SAT 98–100
--- NOTE | ~2024-09-21 | XR_ITS ---
EXAMINATION: XR surgery orthopedic DATE: 09/21/2024 13:59 INDICATION: Right thumb ligament repair TECHNIQUE: 2 images of the right thumb were obtained during procedure performed by Dr. Sparks. Ra diologist was not present for the imaging or procedure. The amount of fluoroscopy time used during th is procedure was 0.2 minutes. Total DAP was 1.774 cGycm^2 COMPARISON: None. FINDINGS: Lucent likely suture anchor tracks are seen at the ulnar aspect of the base of the first proximal pha lanx and head of the first metacarpal consistent with likely ulnar collateral ligament repair. Tiny b one fragments in the soft tissues ulnar to the head of the first metacarpal. Alignment is normal. No fractures identified. Joint spaces are unremarkable. IMPRESSION: 1. Fluoroscopy utilized during likely ulnar collateral ligament repair at the right thumb. See proced ure note for further detail. Reviewed, dictated and finalized at location B. [facility] IMPRESSION: 1. Fluoroscopy utilized during likely ulnar collateral ligament repair at the r ight thumb. See procedure note for further detail.
--- OUTSIDE RECORDS SUMMARY | 2024-09-21 01:23 | XMS_ITS | Patient Health Summary ---
Author Organization [facility] Address [address] [address] Care Team Providers Care Reject Opener And Filler Name Role Phone Deedee Encarnacion MD Primary Care Provider [phone] Note from [facility],non-owned Affiliates and Associated Physician Practices is amultiple site organization consisting of ambulatory clinics and hospital sitesin [place], [place], [place] and [place]. This disclosure is being madepursuant to the Care Everywhere program and may not contain all information available regarding this patient. Last updated 18.[facility] Allergies No known active allergies Medications * Be aware that medications may not be up to date on this document. Alwaysverify current medications with the patient. * lisdexamfetamine (VYVANSE) 40 MG capsule Take 40 mg by mouth once daily. Active Problems Problem Noted Date Diagnosed Date Right foot injury 01/10/2013 Social History Tobacco Use Types Packs/Day Years Used Date Smoking Tobacco: Never Assessed Sex and Gender Information Value Date Recorded Sex Assigned at Not on file Gender Identity Not on file Sexual Orientation Not on file Procedures * IMAGING/RADIOLOGY/XRAY RESULTS ORDER(Performed 02/15/2013) Results * IMAGING/RADIOLOGY/XRAY RESULTS ORDER (02/15/2013 6:19 AM CDT) Anatomical Region Laterality Modality Other Narrative 02/15/2013 6:19 AM CDT Procedure Note Document, Scanned - 02/15/2013 6:19 AM CDT Scanned Document IMAGING Care Teams Reject Opener And Filler Relationship Specialty Start Date End Date Deedee Encarnacion MD [address] [id number] PCP - General Pediatrics 01/09/13
--- OUTSIDE RECORDS SUMMARY | 2024-09-21 01:23 | XMS_ITS | Clinical Summary ---
Author Organization [facility] [employer] Address [address] [place] [address] Care Team Providers Care Director Counseling Bureau Name Role Phone Deedee Encarnacion MD Primary Care Provider [phone] Source Comments [facility] [employer],non-owned Affiliates and Associated Physician Practices is amultiple site organization consisting of ambulatory clinics and hospital sitesin [place], [place] and [place]. This disclosure is being madepursuant to the Care Everywhere program and may not contain all information available regarding this patient. Last updated 18.[facility] [employer] Allergies No known active allergies Medications * Be aware that medications may not be up to date on this document. Alwaysverify current medications with the patient. Medication Sig Dispensed Refills Start Date End Date Status lisdexamfetamine (VYVANSE) 40 MG capsule Take 40 mg by mouth once daily. Active Active Problems Problem Noted Date Diagnosed Date Right foot injury 01/10/2013 Social History Tobacco Use Types Packs/Day Years Used Date Smoking Tobacco: Never Assessed Sex and Gender Information Value Date Recorded Sex Assigned at Not on file Gender Identity Not on file Sexual Orientation Not on file Plan of Treatment Health Maintenance Due Date Last Done Comments HIV SCREENING 2014 HPV VACCINE (1 - Male 3-dose series) 2014 HEPATITIS C SCREENING 03/03/2017 DTAP/TDAP/TD VACCINES (1 - Tdap) 2018 HEPATITIS B VACCINE (1 of 3 - 19+ 3-dose series) 2018 COVID-19 VACCINE ( - 2023-2 5 season) 2024 INFLUENZA VACCINE (#1) 2024 DEPRESSION SCREENING 08/15/2024 ZOSTER VACCINE (1 of 2) 2049 HIB VACCINE Aged Out No longer eligi ble based on patient's age to complete this topic MENINGOCOCCAL (Group B) VACCINE Aged Out No longer eligible based on patient's age to complete this topic MENINGOCOCCAL VACCINE Aged Out No dom wyatt eligible based on patient's age to complete this topic PNEUMOCOCCAL VACCINE Aged Out No long er eligible based on patient's age to complete this topic Care Teams Director Counseling Bureau Relationship Specialty Start Date End Date Deedee Encarnacion MD [address] [place] [address] PCP - General Pediatrics 01/09/13
--- OUTSIDE RECORDS SUMMARY | 2024-09-21 01:23 | XMS_ITS | Referral Summary ---
Author Organization [facility] Address [address] [place] [address] Care Team Providers Care Churn Driller Helper Name Role Phone Deedee Encarnacion MD Primary Care Provider [phone] Source Comments [facility],non-owned Affiliates and Associated Physician Practices is amultiple site organization consisting of ambulatory clinics and hospital sitesin [place], [place], [place] and [place]. This disclosure is being madepursuant to the Care Everywhere program and may not contain all information available regarding this patient. Last updated 18.[facility] Allergies No known active allergies Medications * [...] Orientation Not on file Plan of Treatment Not on file Care Teams Churn Driller Helper Relationship Specialty Start Date End Date Deedee Encarnacion MD [address] [place] [address] PCP - General Pediatrics 01/09/13
--- NOTE | 2024-09-21 10:13 | WPDHPUPDATE1 ---
History and Physical Update Update Date/Time: 09/21/24 10:13 Patient seen and examined in pre-operative holding area. No interval change in medical history or symptoms. Patient recalls previous discussion of benefits and alternatives to procedure. Continues to desire to proceed with right thumb ulnar collateral repair/reconstruction . Reviewed procedure, post-op expectations and risks including but not limited to bleeding, infection, injury to tendon/nerve/vessel, decreased hand function, stiffness, RSD, no change or worsening of symptoms, failure of repair, device failure. I discussed the possible use of assistants and their participation in the case. Patient stated understanding and signed the consent form wishing to proceed.
--- NOTE | 2024-09-21 10:14 | P.OP_ITS ---
Procedure Note - Detailed Date of Procedure 09/21/24 Pre-op Diagnosis right thumb UCL sprain Post-op Diagnosis Same Procedure Performed right thumb UCL repair Surgeon Cruzito Sparks MD Mathematical Sciences Professor milton barnett pa-c Anesthesia MAC Description of Procedure INFORMED CONSENT: The patient was seen and examined and marked in the pre-op area.? The patient signed the consent form. PROCEDURE IN DETAIL:The patient taken back to OR on the stretcher in supine position. Time out performed with anesthesia, surgeon and staff agreeing on patient's name site and surgery to be performed SCDs were placed on the lower extremities and inflated. A tourniquet was placed on {right} upper extremity and antibiotics given IV After anesthesia administered sedation I injected {5}cc 1%lido with epi and 0.5% marcaine plain at the operative site The?{right upper extremity}?was prepped and draped in sterile fashion the??{right upper extremity} was? exsanguinated with Esmarch bandage and tourniquet inflated to 250mmHg I proceeded with making a sigmoid incision on the ulnar aspect of the right thumb metacarpophalangeal joint through skin and dermis with a 15 blade scalpel. Littler scissors were used to spread through subcutaneous tissue down to the adductor aponeurosis. The adductor aponeurosis was incised along its dorsal margin and reflected. This exposed the joint capsule. A Portion of the ulnar collateral ligament was visualized protruding through this capsule. I made my capsulotomy reflected capsular flaps and exposed a frayed ulnar collateral ligament. I debrided scar tissue and appreciated the near complete tear of the ulnar collateral ligament from the proximal phalanx. There appeared to be a reasonable amount of [place] ligament for repair but given its frayed nature the decision was also made to utilize the internal brace for further reinforcement. I used a 15 blade scalpel and [place] to go through periosteum and reflect an area for suture anchor placement on the proximal phalanx and the metacarpal. An Arthrex UCL repair kit was utilized using those supplied K-wires to place in the metacarpal and proximal phalanx. K-wire placement was verified on multiple views of fluoroscopy. I proceeded with using a 4-0 FiberWire to create a Corea suture on the ulnar collateral ligament. I drilled over the K-wire on the proximal phalanx and then proceeded with placing the swivel lock anchor with internal brace and the 4-0 FiberWire while holding the joint in reduction. There was good stability of this reconstruction with approximation of the ulnar collateral ligament to the proximal phalanx insertion site. I drilled my proximal anchor site over the K-wire and placed this internal brace with a SwiveLock anchor. Irrigated with normal saline. There was maintenance of MP joint flexion and no collateral laxity. There appeared to be no impingement of thumb motion. The capsule was repaired with 4-0 FiberWire. I repaired the adductor aponeurosis with 5 0 Prolene. After irrigation with normal saline the skin was closed with 4-0 chromic. A dressing of xeroform, 4x4, aleksey, and a thumb spica splint was applied for patient safety, security, and comfort and secured with an bernardo bandage after the tourniquet was let down noting the hand was warm and well perfused. The patient was then awaken from anesthesia and transferred to the recovery room in stable condition.? Complications - none EBL- 0cc Disposition - home in stable conditions Milton Barnett PA-C was essential for positioning, retraction, closure and dressing placement [facility] Billing Surgery - Charge Forward: Surgery Billing ([id number] for milton)
[2024-09-21] MEDS: LACTATED RINGERS 1,000 ML 30 ML IV CONT (11:40)
--- NOTE | 2024-09-21 12:04 | WPDANESEPPF ---
Anes - Initial Pre Proc Eval Procedure: Operation Date: 09/21/24 12:45 Proposed Procedures p Right Thumb Ulnar Collateral Ligament Repair/Reconstruction - Cruzito Sparks MD Date/Time: 09/21/24 12:04 Surgeon: Cruzito Sparks MD Pre Op Diagnosis: right thumb sprain Patient Data Age: 24 Gender: M Height: 1.85 m Weight: 83.6 kg Last Vital Signs Temp 36.8 C 09/21/24 10:53 Pulse 84 09/21/24 10:53 Resp 20 09/21/24 10:53 BP 121/76 09/21/24 10:53 Pulse Ox 100 09/21/24 10:53 O2 Del Method Room Air 09/21/24 10:53 Allergies Allergy/AdvReac Type Severity Reaction Status Date / Time No Known Allergies Allergy Verified 09/17/24 15:22 Home Medications ?Medication ?Instructions ?Recorded ?Confirmed ?Type lisdexamfetamine 50 mg capsule 50 mg PO DAILY #30 caps 08/30/24 09/21/24 Rx (Vyvanse) Patient hx anesthesia problems: none Family hx anesthesia problems: post op nausea/vomiting Results Review: All pre-operative results and documents have been reviewed as part of the pre-operative evaluation. [facility] Past Medical History Medical History Gastrointestinal disorder ADHD Family History Family History Father Colon cancer Mother Pancreatitis Sibling No problems noted. 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 Informed Consent: The patient's anesthetic plan and its attendant risks and benefits were discussed with the patient/family/POA. Questions were solicited and answers provided to the satisfaction of the patient/family/POA.
[2024-09-21] MEDS: ceFAZolin 2 GM/D5W 50 ML 2 GM/50 ML BAG IVPB (12:43)
[2024-09-21] MEDS: LIDOCAINE 1% LOCAL INJ 20 ML VIAL 10 ML INFILTRATE (12:53)
[2024-09-21] MEDS: oxyCODONE HCL (*CRX) 5 MG TAB IR PO (14:48)
== END 2024-09-21 15:27 | disposition home or self-care (01) ==
PROVIDERS: PCP Family Medicine; Visit Provider Plastic Surgery
PROC: (CPT 26540; principal; 2024-09-21 12:45)
DX: S63.641A Sprain of metacarpophalangeal joint of right thumb, initial encounter (principal); F90.9 Attention-deficit hyperactivity disorder, unspecified type; F17.290 Nicotine dependence, other tobacco product, uncomplicated; W18.30XA Fall on same level, unspecified, initial encounter; Z87.19 Personal history of other diseases of the digestive system; Z80.0 Family history of malignant neoplasm of digestive organs
CPT/HCPCS: 26540; 99199; A9270; C1713; J0690; J1100; J2003; J2405; J2704; J3010; J7120

== ENCOUNTER 2024-11-23 08:45 | Outpatient (RCR) | payer OTHER, SELFPAY ==
--- NOTE | 2024-10-12 10:48 | OTOPEVAL1 ---
Assessment and note entered by Cesar Kamara, PRINCE/Junie, ERNST OT Evaluation Information 10/12/24 Assessment Status Evaluation Diagnosis [id number] Subjective Information Patient is s/p right thumb MPJ UCL repair 09/21/24 with Arthrex repair. He presents today for fabrication of a custom removable orthosis. He is right handed. Reporting mild pain. He is a soriano, off work right now. Reported Pain Level Pain Score 3/10 with active ROM Assessment OT Clinical Summary Patient is referred to OT with dx of UCL tear s/p Arthrex repair of UCL 3 weeks ago. Today a custom, hand based thumb spica was fabricated for the patient. It protects any lateral forces on the MCP joint and allows for ROM at the IP. Educated on activity restrictions, hand hygiene, and ROM HEP. Continued follow up indicated for use of modalities, splinting modifications PRN, and HEP progression. Plan of Care Interventions Therapeutic Exercise,Manual Therapy,Therapeutic Activities,Check Out for Orthotic/Prosthetic, Ultrasound,Paraffin OT Services Indicated Yes Treatment Frequency and 1x/week for 5 visits Duration These treatments will address the objective and functional deficits as defined above. The patient will be advanced safely and appropriately in order for the patient to progress towards his/her prior level of function. Additional exercises will be introduced and as well as a comprehensive home exercise program upon discharge, if needed, ?to ensure carryover of functional gains achieved in the clinic. This treatment plan has been reviewed and agreement upon by the patient.
--- NOTE | 2024-10-12 10:49 | OPREHPOC ---
Outpatient Therapy Plan of Care This is a Multidisciplinary Plan of Care that may contain components documented by all disciplines (PT, OT, and ST.) OT Problem 1 OT Problem #1 Knowledge Deficit OT Goal 1 Goal / Goal Update Patient to be independent with instructed materials. Target Visit 5 OT Goal 2 Goal / Goal Update Patient to be compliant with splint wearing schedule. Target Visit 5 OT Problem 2 OT Problem #2 Pain OT Goal 1 Goal / Goal Update Patient to be independent with non-medication pain management - ROM - ice/heat - manual techniques Target Visit 5 OT Problem 3 OT Problem #3 Impaired Range of Motion OT Goal 1 Goal / Goal Update Patient to improve functional (R) thumb active ROM for ADLs, work tasks, playing video games, etc. as demonstrated by: - measuring 70 deg. of MCP flexion actively - measuring 70 deg. of IP flexion actively Target Visit 5
--- NOTE | 2024-11-09 08:59 | OTOPPROG ---
Assessment and note entered by Cesar Kamara, PRINCE/Junie, ERNST OT Progress Update 11/09/24 Assessment Status Progress Diagnosis S69.91XA Subjective Information -Patient is s/p right thumb MPJ UCL repair 09/21/24 with Arthrex repair. -He has been compliant with HEP and splint wearing schedule. 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 -He reports he is having no pain and his thumb is feeling more flexible. Function jaffe he continues to wear his splint with all hand use. 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 Assessment OT Clinical Summary Patient is referred to OT with dx of UCL tear s/p Arthrex repair of UCL 7 weeks ago. Today his HEP was progressed to include gentle pinch strengthening. Instructed in limiting to 50% pinch effort and gave him visual feedback with pinch gauge. He also demonstrates a tight 1st web space, some residual stiffness in the MCP joint when moving into flexion, and lacking full thumb extension. Instructed in soft tissue mobilization to the 1st web space and passive stretching to the thumb into flexion and extension with care to restrict any lateral forces to the MCP joint. Continued follow up indicated to progress HEP and activities and to instruct on weaning out of the splint. Plan of Care Interventions Therapeutic Exercise,Manual Therapy,Therapeutic Activities,Check Out for Orthotic/Prosthetic, Ultrasound,Paraffin OT Services Indicated Yes Treatment Frequency and 1x/week for 3 visits Duration These treatments will address the objective and functional deficits as defined above. The patient will be advanced safely and appropriately in order for the patient to progress towards his/her prior level of function. Additional exercises will be introduced and as well as a comprehensive home exercise program upon discharge, if needed, ?to ensure carryover of functional gains achieved in the clinic. This treatment plan has been reviewed and agreement upon by the patient.
--- NOTE | 2024-11-09 09:00 | OPREHPOC ---
Outpatient Therapy Plan of Care This is a Multidisciplinary Plan of Care that may contain components documented by all disciplines (PT, OT, and ST.) OT Problem 1 OT Problem #1 Knowledge Deficit OT Goal 1 Goal / Goal Update Patient to be independent with instructed materials. ---OT POC UPDATE 11/09/24--- Met, continue as HEP is progressed Target Visit 5 OT Goal 2 Goal / Goal Update Patient to be compliant with splint wearing schedule. ---OT POC UPDATE 11/09/24--- Met, continue as schedule is modified Target Visit 5 OT Problem 2 OT Problem #2 Pain OT Goal 1 Goal / Goal Update Patient to be independent with non-medication pain management - ROM - ice/heat - manual techniques ---OT POC UPDATE 11/09/24--- Met, no pain Target Visit 5 OT Problem 3 OT Problem #3 Impaired Range of Motion OT Goal 1 Goal / Goal Update Patient to improve functional (R) thumb active ROM for ADLs, work tasks, playing video games, etc. as demonstrated by: - measuring 70 deg. of MCP flexion actively - measuring 70 deg. of IP flexion actively ---OT POC UPDATE 11/09/24--- - progressing with MCP - met with IP Target Visit 5 OT Problem 4 OT Problem #4 Impaired Functional ADLs OT Goal 1 Goal / Goal Update ---OT POC UPDATE 11/09/24--- New goal: - patient to progress functional thumb use to include light pinch when getting dressed, doing the dishes, etc. without reports of pain Target Visit 5
--- NOTE | 2024-12-10 09:00 | PCOTNOTE ---
Patient did not show for OT re-eval this date. Called patient and left voicemail regarding missed appointment and to call back to rescheduled the re-eval.
--- NOTE | 2024-12-28 13:10 | OTOPDC ---
Assessment and note entered by Cesar Kamara, OTR/L, CHT OT Discharge Notification Subjective Information Patient is s/p right thumb MPJ UCL repair 09/21/24 with Arthrex repair. OT Clinical Summary Patient has not shown for therapy since his appointment on 11/23/24 (9 weeks post-op). His HEP had been progressed to include gentle pinch strengthening at 50% effort. He was also instructed in soft tissue mobilization to the 1st web space and passive stretching to the thumb into flexion and extension with care to restrict any lateral forces to the MCP joint. He reported he had returned to work. Attempted to contact the patient to reschedule his reassessment visit, however he did not answer or call back. D/C OT at this time.
== END 2025-01-08 08:45 | disposition home or self-care (01) ==
LOC: ANHOT 08:45
PROVIDERS: PCP Family Medicine; Visit Provider Physician Assistant Surgical
DX: S69.91XA Unspecified injury of right wrist, hand and finger(s), initial encounter (principal)
CPT/HCPCS: 97018; 97110; 97140; 97165; 97763; L3921